=== PATIENT | female | born 1950 | race Caucasian/White ===

== ENCOUNTER 2020-03-12 09:44 | Emergency (ER) | payer MEDICARE, MEDICAID, SELFPAY ==
--- NOTE | ~2020-03-12 | CT_ITS ---
EXAMINATION: CT cervical spine wo con DATE: 03/12/2020 10:50 INDICATION: 6 days of neck pain which increases with movement. Headache starting today. TECHNIQUE: Computed tomography (CT) of the cervical spine was performed without intravenous contrast. Automated exposure control and iterative reconstruction technique were employed. The dose-length pro duct was 561.04 mGy-cm. COMPARISON: None FINDINGS: Straightening of the normal cervical lordosis. No spondylolisthesis or facet subluxation. Vertebral b cristal heights are normal. No fracture. Moderate disc height loss with degenerative endplate changes at C5-C6. Mild disc height loss at C4-C5. Evaluation of the disc margins in the mid to lower cervical sp ine is limited by quantum mottle secondary to patient body habitus. Mild mosaic attenuation in the up per lungs suggesting air trapping related to small airway disease. Mild atherosclerotic calcific a cy st at the bilateral carotid bulbs. Cervical soft tissues are otherwise unremarkable. The following di sc levels are specifically discussed: C2-C3: Disc is mildly bulging. There is mild right and minimal left uncovertebral joint osteoarthriti s. There is mild bilateral facet joint osteoarthritis. There is no neural foraminal stenosis. There i s no central canal stenosis. C3-C4: Disc is mildly bulging. There is mild bilateral uncovertebral joint osteoarthritis. There is m inimal bilateral facet joint osteoarthritis. There is no neural foraminal stenosis. There is mild sandi tral canal stenosis. C4-C5: Disc is mildly bulging. There is mild right and minimal left uncovertebral joint osteoarthriti s. There is minimal bilateral facet joint osteoarthritis. There is no neural foraminal stenosis. Ther e is minimal central canal stenosis. C5-C6: Anterior disc osteophyte complex with central disc protrusion. There is severe bilateral uncov ertebral joint osteoarthritis. There is mild bilateral facet joint osteoarthritis. There is mild left and moderate right neural foraminal stenosis. There is mild central canal stenosis. C6-C7: Likely disc bulge. There is mild bilateral uncovertebral joint osteoarthritis. There is modera te bilateral facet joint osteoarthritis. There is mild left neural foraminal stenosis. There is mild central canal stenosis. C7-T1: The disc does not extend beyond the endplate margin. There is mild right uncovertebral joint o steoarthritis. There is mild bilateral facet joint osteoarthritis. There is no neural foraminal steno sis. There is no central canal stenosis. IMPRESSION: 1. Mild to moderate cervical spondylosis most prominent at C5-C6. No acute osseous abnormality. Reviewed, dictated and finalized at location A. IMPRESSION: 1. Mild to moderate cervical spondylosis most prominent at C5-C6. No acute osse ous abnormality.
[2020-03-12 09:47] VITALS: BP 182/76; PULSE 84; RESP 20; TEMP 36.4; O2SAT 98
--- NOTE | 2020-03-12 10:35 | ED.NECK ---
HPI - Neck Pain/Injury General Chief Complaint: Neck Pain/Injury Stated Complaint: neck pain since thurs Time Seen by Provider: 03/12/20 10:11 Source: patient Mode of arrival: ambulatory Limitations: no limitations History of Present Illness HPI Narrative: This is a 69 year old female that presents to the ER for neck pain x 6 days. No known injury or trauma. Reports pain is on the right side of her neck. Pain is sore and she is tender to palpation of the musculature. She has been taking ibuprofen at home with some relief. Denies fever, vision changes, vomiting, numbness or weakness. Related Data Home Medications Medication Instructions Recorded Confirmed atorvastatin 40 mg PO DAILY 03/12/20 duloxetine 60 mg PO DAILY 03/12/20 furosemide 60 mg PO DAILY 03/12/20 gabapentin 800 mg PO TID 03/12/20 hydrocodone-acetaminophen 1 tablet PO Q6H PRN 03/12/20 losartan-hydrochlorothiazide 1 tablet PO DAILY 03/12/20 omeprazole 20 mg PO DAILY 03/12/20 potassium chloride 20 meq PO DAILY 03/12/20 ropinirole 0.5 mg PO DAILY 03/12/20 sertraline [Zoloft] 100 mg PO DAILY 03/12/20 Allergies Allergy/AdvReac Type Severity Reaction Status Date / Time bupropion AdvReac Severe Hives Verified 03/12/20 10:04 Review of Systems Review of Systems: Narrative: CONSTITUTIONAL: Denies fever EYES: Denies visual changes GASTROINTESTINAL: Denies vomiting SKIN: Denies rash MUSCULOSKELETAL: Reports joint pain, and myalgia. NEUROLOGIC: Denies headache, numbness, or weakness. All systems reviewed & are unremarkable except as noted in HPI and below PMFSH Past Medical History Medical History (Updated 03/12/20 @ 12:07 by India Smith PA-C) History of gastroesophageal reflux (GERD) History of hypertension Surgical History Surgical History (Updated 03/12/20 @ 10:44 by India Smith PA-C) History of appendectomy History of cholecystectomy History of hysterectomy History of tonsillectomy Social History Social History (Updated 03/12/20 @ 10:45 by India Smith PA-C) Smoking status: Current every day smoker Substance use: never Exam Narrative: Exam Narrative: GENERAL: Well-appearing, well-nourished, and in no acute distress. HEAD: Normocephalic, atraumatic. EYES: EOMI. NECK: Supple. No adenopathy or masses. No midline cervical spine tenderness. Tender to palpation of the right trapezius musculature CHEST: Clear to auscultation. No respiratory distress. No wheezes rales or rhonchi HEART: Regular rate and rhythm. No murmur heard. Normal peripheral pulses. EXTREMITIES: Normal range of motion. No edema. Strength equal in bilateral upper extremities (5/5) SKIN: Warm, dry, no rash. NEURO: No focal deficits. Alert and oriented x3. PSYCH: Normal mood and affect Course Vital Signs Vital signs: Vital Signs Temperature 97.6 F 03/12/20 09:47 Pulse Rate 84 03/12/20 09:47 Respiratory Rate 03/12/20 09:47 Blood Pressure 182/76 H 03/12/20 09:47 Pulse Oximetry 98 03/12/20 09:47 Temperature 97.6 F 03/12/20 09:47 Pulse Rate 84 03/12/20 09:47 Respiratory Rate 03/12/20 09:47 Blood Pressure 182/76 H 03/12/20 09:47 Pulse Oximetry 98 03/12/20 09:47 MDM - Neck Pain/Injury MDM Narrative Medical decision making narrative: Patient presents the emergency department for neck pain x6 days. No known injury or trauma. Patient is afebrile and nontoxic-appearing. Patient is neurologically intact. She is tender to palpation of the right trapezius musculature. CT scan of the cervical spine shows mild to moderate cervical spondylosis. No acute osseous abnormality. Patient reports improvement with anti-inflammatory. Patient is stable and felt appropriate for further outpatient evaluation. She is to follow-up with primary care doctor. She was given warnings to return to the ER Imaging Data Radiologist's impression: ITS Impressions Cervical Spine CT 03/12/20 10:51 IMPRESSION: 1. Mild to moderat
[2020-03-12] MEDS: IBUPROFEN 600 MG TABLET PO (10:48)
--- NOTE | 2020-03-12 10:56 | PC.NURSE ---
pt states is driving self home. discussed with [place] MALIK. order discontinued. med wasted
[2020-03-12 12:35] VITALS: BP 148/74; PULSE 77; RESP 14; O2SAT 100
== END 2020-03-12 12:36 | disposition home or self-care (01) ==
PROVIDERS: Emergency Provider Emergency Medicine
DX: M54.2 Cervicalgia (principal); I10 Essential (primary) hypertension; K21.9 Gastro-esophageal reflux disease without esophagitis
CPT/HCPCS: 72125; 99284; A9270; J3360